=== PATIENT | male | born 1950 | race Caucasian/White ===

== ENCOUNTER 2025-09-01 08:53 | Outpatient (AMB) | payer MEDICARE, SELFPAY ==
--- NOTE | 2025-09-01 08:56 | A.PHYSOV ---
Vital Signs 09/01/25 08:58 Height 5 ft 4.5 in Weight 197 lb BMI 33.3 Intake Visit Reasons: Bilateral knee injections Intake Note: Patient is a 74 year old male here for bilateral knee injections. 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 Allergies clindamycin Allergy (Unknown, Verified 08/31/25 13:17) Unknown [facility] Surgical History H/O hernia repair (Unknown) History of cancer surgery (Unknown) Social History Alcohol intake: current Alcohol intake frequency: does not drink Patient Tobacco Use Status: Never used Tobacco Physical Exam Vital Signs: BMI result Body Mass Index 33.3 Office Procedures AMB Knee Injection AMB Knee Injection Procedure Details: Bilateral Knee injection: The risks, benefits and complications of the left knee injection were discussed with the patient including but not limited to increased serum glucose, infection, nerve pain, fat atrophy, pigment augmentation, bleeding and pain. All questions were answered to the patient's satisfaction. Verbal consent was obtained. The patient was eager to proceed. Using aseptic technique with Betadine, ethyl chloride was then used to desensitize the skin. Using a 22-gauge needle 40 mg of Kenalog and 3 mL 2% lidocaine were injected into the knee joint. A Band-Aid was applied. Patient tolerated the procedure well without immediate complication. Postinjection instructions were given. The procedure was repeated on the right. Knee Injection - : Bilateral All charges added?: Procedure code (CPT) selection complete Office Meds Kenalog 40 mg/mL suspension for injection Performing Provider: LINDA Fisher Performing Location: [facility] Administered by: LINDA Fisher on 09/01/25 09:23 Dose Route Admin Location Dispensed Lot Number Expiration Date [facility] [employer] 40 mg intra-articular 1 mL [address]-6 [employer] Total Dispensed Waste 1 mL 0 % lidocaine (PF) 20 mg/mL (2 %) injection solution Performing Provider: LINDA Fisher Performing Location: [facility] Administered by: LINDA Fisher on 09/01/25 09:23 Dose Route Admin Location Dispensed Lot Number Expiration Date [facility] [employer] 60 mg intra-articular 50 mL [id number] Total Dispensed Waste 50 mL 0 % Assessment & Plan Assessment & Plan (1) Bilateral primary osteoarthritis of knee: Code(s): M17.0 - Bilateral primary osteoarthritis of knee Category: Medical Plan Mr. Kelvin Flor is a 74-year-old male seen in evaluation today for bilateral knee osteoarthritis. Today consented to bilateral knee corticosteroid injection. He was given post-injection instructions, recommend: Moist heat compresses 15 minutes 5 times daily. Continue low-impact activities such as walking, biking and swimming. Follow-up in our office as needed Thank you for allowing me to participate in the care of your patient. Orders: Orders AMB Knee Injection Today M17.0 - Bilateral primary osteoarthritis of knee Coding Level of Care Code Procedure Only Diagnoses Bilateral primary osteoarthritis of knee M17.0 CPT Codes AMB Knee Injection - Hip/Bursa Injection - : Bilateral ([id number])
[2025-09-01 08:58] VITALS: BMI 33.3
== END 2025-09-01 09:25 | disposition home or self-care (01) ==
LOC: HO.HPHYS 08:54
PROVIDERS: PCP Internal Medicine; Visit Provider Physician Assistant
DX: M17.0 Bilateral primary osteoarthritis of knee (principal)
CPT/HCPCS: 20610

== ENCOUNTER → 2025-09-01 08:53 | Outpatient (BNVA) | payer MEDICARE, SELFPAY | PROVIDERS: PCP Internal Medicine; Visit Provider Physician Assistant | DX: M17.0 Bilateral primary osteoarthritis of knee (principal) | CPT/HCPCS: 20610; J2003; J3301 ==